=== PATIENT | female | born 1975 | race Two or more races ===

== ENCOUNTER → 2020-08-21 | Outpatient (CLI) | payer OTHER | END | disposition home or self-care (01) | LOC: STAR 14:57 | PROVIDERS: ATTEND Urology | DX: Z01.818 Encounter for other preprocedural examination (principal); N39.3 Stress incontinence (female) (male) | CPT/HCPCS: 87086 ==

== ENCOUNTER 2020-08-31 05:58 | Day surgery (SDC) | payer OTHER ==
[~2020-08-31] VITALS: Ht 154.9 cm; Wt 79.2 kg
[2020-08-31] MEDS ORDERED: NO HOME MEDS PER PT (06:16)
[2020-08-31 06:19] VITALS: BP 158/98
[2020-08-31] MEDS ORDERED: CHLORHEXIDINE 15 ML UDC ONE (06:22)
[2020-08-31] MEDS ORDERED: LACTATED RINGERS 1,000 ML IV SCH (06:30)
[2020-08-31] MEDS ORDERED: CHLORHEXIDINE 15 ML UDC PO ONE (06:30)
[2020-08-31 06:36] LABS: HCG UR SG 1.024 (1.003-1.030)
[2020-08-31] MEDS ORDERED: MIDAZOLAM 1 MG/ML, 2ML ONE (08:12)
[2020-08-31] MEDS ORDERED: FENTANYL PF 100 MCG/2ML ONE ×3 (08:12→10:16)
[2020-08-31] MEDS ORDERED: EPINEPHRINE 1 MG/ML, 1ML ONE (08:20)
[2020-08-31] MEDS ORDERED: BUPIVACAINE/PF 0.25% ONE (08:20)
[2020-08-31] MEDS ORDERED: OXYcodone 5 MG/5 ML ORAL.SOL UDC PO PRN (08:30)
[2020-08-31] MEDS ORDERED: HYDROmorphone 1 MG/ML, 1ML INJ IVPush PRN (08:30)
[2020-08-31] MEDS ORDERED: PROMETHAZINE 25 MG/ML, 1ML IVPush PRN (08:30)
[2020-08-31] MEDS ORDERED: HALOPERIDOL 5 MG/ML IV PRN (08:30)
[2020-08-31] MEDS ORDERED: LABETALOL 5MG/ML, 20ML IV PRN (08:30)
[2020-08-31] MEDS ORDERED: hydrALAzine 20 MG/ML, 1ML IV PRN (08:30)
[2020-08-31] MEDS ORDERED: MEPERIDINE/PF 25MG/0.5ML IVPush PRN (08:30)
[2020-08-31] MEDS ORDERED: ACETAMINOPHEN 325 MG TABLET PO PRN (08:30)
[2020-08-31] MEDS ORDERED: DIPHENHYDRAMINE 50 MG/ML, 1ML IVPush PRN (08:30)
[2020-08-31] MEDS ORDERED: LIDOCAINE/PF 1%, 30ML ONE (08:46)
[2020-08-31] MEDS ORDERED: PROPOFOL 10 MG/ML, 20ML ONE (09:26)
[2020-08-31] MEDS ORDERED: DEXAMETHASONE 4 MG/ML, 1ML ONE (09:26)
[2020-08-31] MEDS ORDERED: ONDANSETRON 2MG/ML, 2ML ONE (09:26)
[2020-08-31] MEDS ORDERED: CEFAZOLIN 1,000 MG ONE (09:26)
[2020-08-31] MEDS ORDERED: OXYcodone 5 MG/5 ML ORAL.SOL UDC ONE (10:17)
[2020-08-31] MEDS ORDERED: PROMETHAZINE 25 MG/ML, 1ML ONE (10:25)
[2020-08-31] MEDS ORDERED: FENTANYL PF 100 MCG/2ML IV PRN (10:30)
== END 2020-08-31 13:00 | disposition home or self-care (01) ==
LOC: OUT 05:58
PROVIDERS: ATTEND Urology
DX: N39.46 Mixed incontinence (principal); N81.10 Cystocele, unspecified; Z20.822 Contact with and (suspected) exposure to COVID-19
CPT/HCPCS: 57288; 81025; C1771; J0171; J0690; J1100; J2250; J2405; J2704; J3010; J7120; U0003; U0005